=== PATIENT | female | born 1955 | race Caucasian/White ===

== ENCOUNTER 2017-01-10 06:08 | Day surgery (SDC) | payer MEDICARE, MEDICAID ==
[~2017-01-10] VITALS: Ht 165.1 cm; Wt 63.1 kg
[~2017-01-10 06:08] MED LIST: AMLO10TA2 PO; CITA20TA5 PO; CLON0.2T PO; ERGO500017 PO; GABA100C8 PO; HYDR-3138 PO; HYDR-3342 PO; INSU100C5 SQ-INSULIN; INSU100V8 SQ; LANT500T PO; LISI-170 PO; OMEP-110 PO; SIMV5TAB5 PO; SPIR25TA3 PO; TIZA2CAP PO
[2017-01-10 06:52] VITALS: BP 167/81
[2017-01-10] MEDS ORDERED: SODIUM CHLORIDE 0.9% 1,000 ML IV SCH (06:52)
[2017-01-10] MEDS ORDERED: HEPARIN 1,000 UNITS/ML, 10ML ONE (07:14)
[2017-01-10] MEDS ORDERED: BUPIVACAINE/PF 0.5% ONE (07:14)
[2017-01-10] MEDS ORDERED: PROTAMINE SULFATE 10 MG/ML, 5ML ONE (07:14)
[2017-01-10] MEDS ORDERED: hydrALAzine 20 MG/ML, 1ML IV PRN (08:30)
[2017-01-10] MEDS ORDERED: OXYcodone 5 MG/5 ML ORAL.SOL UDC PO PRN (08:30)
[2017-01-10] MEDS ORDERED: METOPROLOL 1 MG/ML, 5ML IV PRN (08:30)
[2017-01-10] MEDS ORDERED: ALBUTEROL SULFATE 2.5 MG/3 ML NPPB PRN (08:30)
[2017-01-10] MEDS ORDERED: ACETAMINOPHEN 325 MG TABLET PO PRN (08:30)
[2017-01-10] MEDS ORDERED: FENTANYL PF 100 MCG/2ML ONE ×2 (08:44→10:38)
[2017-01-10] MEDS ORDERED: PROPOFOL 10 MG/ML, 50ML ONE (08:46)
[2017-01-10] MEDS ORDERED: PROPOFOL 10 MG/ML, 20ML ONE (08:46)
[2017-01-10] MEDS ORDERED: CEFAZOLIN 1,000 MG ONE (08:46)
[2017-01-10] MEDS ORDERED: VISIPAQUE 270 MG/ML, 50ML BOTTLE ONE (09:25)
[2017-01-10] MEDS ORDERED: OXYcodone 5 MG/5 ML ORAL.SOL UDC ONE (10:38)
[2017-01-10] MEDS: FENTANYL PF 100 MCG/2ML IV PRN ×2 (10:40→10:46)
[2017-01-10] MEDS ORDERED: THROMBIN 5,000 UNIT VIAL TP ONE (15:05)
== END 2017-01-10 13:45 | disposition home or self-care (01) ==
LOC: OUT 06:08
PROVIDERS: ATTEND Surgery Vascular Surgery
DX: T82.858A Stenosis of other vascular prosthetic devices, implants and grafts, initial encounter (principal); Z79.4 Long term (current) use of insulin; Z86.14 Personal history of Methicillin resistant Staphylococcus aureus infection; E11.22 Type 2 diabetes mellitus with diabetic chronic kidney disease; I13.2 Hypertensive heart and chronic kidney disease with heart failure and with stage 5 chronic kidney disease, or end stage renal disease; N18.6 End stage renal disease; I50.9 Heart failure, unspecified; Z99.2 Dependence on renal dialysis; I42.9 Cardiomyopathy, unspecified; E11.21 Type 2 diabetes mellitus with diabetic nephropathy; K21.9 Gastro-esophageal reflux disease without esophagitis; D64.9 Anemia, unspecified; Z72.89 Other problems related to lifestyle; Y83.2 Surgical operation with anastomosis, bypass or graft as the cause of abnormal reaction of the patient, or of later complication, without mention of misadventure at the time of the procedure
CPT/HCPCS: 36415; 36832; 36901; 75710; 80047; 82962; 93005; C1768; J0690; J1644; J2704; J2720; J3010; J3490; J7030; Q9966

== ENCOUNTER 2017-04-17 07:05 | Day surgery (SDC) | payer MEDICARE, MEDICAID ==
[~2017-04-17] VITALS: Ht 165.1 cm; Wt 63.5 kg
[~2017-04-17 07:05] MED LIST changes: +GABA-826 PO; -GABA100C8 PO; -HYDR-3138 PO; +HYDR-3237 PO
[2017-04-17] MEDS ORDERED: LABETALOL 5MG/ML, 20ML IV PRN (08:30)
[2017-04-17] MEDS ORDERED: METOPROLOL 1 MG/ML, 5ML IV PRN (08:30)
[2017-04-17] MEDS ORDERED: FENTANYL PF 100 MCG/2ML IV PRN (08:30)
[2017-04-17] MEDS ORDERED: EPHEDRINE 50 MG/ML, 1ML IVPush PRN (08:30)
[2017-04-17] MEDS ORDERED: ALBUTEROL SULFATE 2.5 MG/3 ML NPPB PRN (08:30)
[2017-04-17] MEDS ORDERED: HYDROmorphone 1 MG/ML, 1ML IV PRN (08:30)
[2017-04-17] MEDS ORDERED: ONDANSETRON 2MG/ML, 2ML IVPush PRN (08:30)
[2017-04-17] MEDS ORDERED: SODIUM CHLORIDE 0.9% 1,000 ML IV SCH (08:34)
[2017-04-17 08:35] VITALS: BP 186/76
[2017-04-17 08:45] LABS: HEMATOCRIT 34.1 % (34.6-47.8); HEMOGLOBIN 11.4 g/dL (11.7-16.4); WHITE BLOOD COUNT 7.6 x10^3/uL (3.4-10)
[2017-04-17 08:54] LABS: ASPARTATE AMINO TRANSFERASE 37 U/L (15-37); BLOOD UREA NITROGEN 27 mg/dL (7-18)
[2017-04-17] MEDS ORDERED: FENTANYL PF 100 MCG/2ML ONE (09:05)
[2017-04-17] MEDS ORDERED: hydrALAzine 20 MG/ML, 1ML ONE (10:14)
[2017-04-17] MEDS ORDERED: hydrALAzine 20 MG/ML, 1ML IV PRN (10:30)
== END 2017-04-17 11:30 ==
LOC: OUT 07:05
PROVIDERS: ATTEND Internal Medicine Gastroenterology
DX: Z12.11 Encounter for screening for malignant neoplasm of colon (principal); K25.9 Gastric ulcer, unspecified as acute or chronic, without hemorrhage or perforation; D64.9 Anemia, unspecified; N18.6 End stage renal disease; Z86.14 Personal history of Methicillin resistant Staphylococcus aureus infection
CPT/HCPCS: 36415; 80053; 85025; 85610; 85730; 88305; G0121; J0360; J3010; J7030

== ENCOUNTER → 2019-06-25 | Outpatient (CLI) | payer MEDICARE, MEDICAID ==
[~2019-06-25] MED LIST changes: +ACET325T26 PO; +ACID1TAB7 PO; +AMIT10TA PO; -AMLO10TA2 PO; +AMLO10TA8 PO; +ATOR-2 PO; +CARV25TA12 PO; -CITA20TA5 PO; +CITA20TA6 PO; +FURO20TA3 PO; +HYDR-3343 PO; +HYDR-36 PO; +INSU100I11 SQ-INSULIN; +ISOS20TA58 PO; +LOSA50TA2 PO; +PATI8.4P PO; +SEVE800T8 PO; +SIMV5TAB14 PO; -SIMV5TAB5 PO; -SPIR25TA3 PO; +SPIR25TA5 PO; +albuterol inhaler
== END | disposition home or self-care (01) ==
LOC: CFH 12:14
PROVIDERS: ATTEND Internal Medicine Cardiovascular Disease
DX: I08.8 Other rheumatic multiple valve diseases (principal); E11.22 Type 2 diabetes mellitus with diabetic chronic kidney disease; I12.0 Hypertensive chronic kidney disease with stage 5 chronic kidney disease or end stage renal disease; N18.6 End stage renal disease
CPT/HCPCS: 93306

== ENCOUNTER → 2019-07-21 | Outpatient (CLI) | payer MEDICARE, MEDICAID ==
[2019-07-21 16:25] LABS: ALBUMIN 3.3 g/dL (3.4-5.0); ANION GAP 10 mmol/L (5-15); CALCIUM 9.7 mg/dL (8.5-10.1); CHLORIDE 93 mmol/L (98-107); CHOLESTEROL, TOTAL 95 mg/dL (140-239)
[2019-07-21 16:28] LABS: ALANINE AMINOTRANSFERASE 21 U/L (12-78); ALKALINE PHOSPHATASE 213 U/L (45-117); BILIRUBIN,TOTAL 0.4 mg/dL (0.2-1.0); CHOL/HDL RATIO 2.2; CREATININE 5.37 mg/dL (0.55-1.02); HDL CHOL % 46 % (28-40); HDL CHOLESTEROL (DIRECT) 44 mg/dL (40-60); LDL CHOLESTEROL,CALCULATED 28 mg/dL (54-169); LDL/HDL RATIO 0.6 (0.5-3.0); TOTAL PROTEIN 7.1 g/dL (6.4-8.2); TRIGLYCERIDES 116 mg/dL (50-200); VLDL CHOLESTEROL 23 mg/dL (0-25)
[2019-07-21 16:46] LABS: HEMOGLOBIN A1C 7.8 % (4.2-6.3)
== END | disposition home or self-care (01) ==
LOC: CFH 11:39
PROVIDERS: ATTEND Nurse Practitioner
DX: J98.11 Atelectasis (principal); J96.11 Chronic respiratory failure with hypoxia; E11.69 Type 2 diabetes mellitus with other specified complication
CPT/HCPCS: 36415; 71046; 80053; 80061; 83036

== ENCOUNTER 2019-08-27 06:00 | Day surgery (SDC) | payer MEDICARE, MEDICAID ==
[~2019-08-27] VITALS: Ht 165.1 cm; Wt 67.9 kg
[2019-08-27] MEDS ORDERED: LACTATED RINGERS 1,000 ML IV SCH (07:08)
[2019-08-27] MEDS ORDERED: SODIUM CHLORIDE 0.9% 1,000 ML IV SCH (07:10)
[2019-08-27] MEDS ORDERED: FENTANYL PF 100 MCG/2ML ONE (07:59)
[2019-08-27] MEDS ORDERED: MIDAZOLAM 1 MG/ML, 2ML ONE (07:59)
[2019-08-27] MEDS ORDERED: DEXTROSE 50%, 50ML SYRINGE IVPush PRN (08:00)
[2019-08-27] MEDS ORDERED: KETAMINE 10 MG/ML, 20ML ONE (08:04)
[2019-08-27 08:06] VITALS: BP 221/89
[2019-08-27] MEDS ORDERED: hydrALAzine 20 MG/ML, 1ML ONE (08:11)
[2019-08-27 08:13] LABS: ALBUMIN 3.3 g/dL (3.4-5.0); ANION GAP 9 mmol/L (5-15); CALCIUM 9.6 mg/dL (8.5-10.1); CHLORIDE 100 mmol/L (98-107)
[2019-08-27 08:16] LABS: ALANINE AMINOTRANSFERASE 14 U/L (12-78); ALKALINE PHOSPHATASE 172 U/L (45-117); BILIRUBIN,TOTAL 0.4 mg/dL (0.2-1.0); TOTAL PROTEIN 6.9 g/dL (6.4-8.2)
[2019-08-27] MEDS ORDERED: MEPERIDINE/PF 25MG/ML,1ML IVPush PRN (09:00)
[2019-08-27] MEDS ORDERED: HYDROmorphone 1 MG/ML, 1ML INJ IVPush PRN (09:00)
[2019-08-27] MEDS ORDERED: OXYcodone 5 MG/5 ML ORAL.SOL UDC PO PRN (09:00)
[2019-08-27] MEDS ORDERED: FENTANYL PF 100 MCG/2ML IV PRN (09:00)
[2019-08-27] MEDS ORDERED: ONDANSETRON 2MG/ML, 2ML IV PRN (09:00)
[2019-08-27] MEDS ORDERED: hydrALAzine 20 MG/ML, 1ML IV PRN (09:00)
== END 2019-08-27 10:40 | disposition home or self-care (01) ==
LOC: OUT 06:00
PROVIDERS: ATTEND Internal Medicine Gastroenterology
DX: R13.14 Dysphagia, pharyngoesophageal phase (principal); K22.2 Esophageal obstruction; K22.70 Barrett's esophagus without dysplasia; E11.22 Type 2 diabetes mellitus with diabetic chronic kidney disease; I13.2 Hypertensive heart and chronic kidney disease with heart failure and with stage 5 chronic kidney disease, or end stage renal disease; I50.9 Heart failure, unspecified; N18.6 End stage renal disease; E66.9 Obesity, unspecified; Z99.81 Dependence on supplemental oxygen; Z99.2 Dependence on renal dialysis
CPT/HCPCS: 43239; 43248; 80053; 82962; 88305; 93005; J0360; J2250; J3010; J7030

== ENCOUNTER 2019-09-18 12:35 | Observation (INO) | payer MEDICARE, MEDICAID ==
[~2019-09-18] VITALS: Ht 165.1 cm; Wt 70.0 kg
--- NOTE | 2019-09-18 12:50 | NUR ---
SEE TRIAGE NOTE. PT RATES ARNETT AND SS CP AT 03/21. PT WITH DIFFICULT IV ACCESS, REMSA UNABLE TO OBTAIN. MEDIC TO ATTEMPT IV START FOR PAIN MED DELIVERY. PT PLACED ON ALL ROOM MONITORING. NSR ON MONITOR. CALL LIGHT WITHIN REACH, WARM BLANKET PROVIDED. PT IMMEDIATELY PUT ON TV, WATCHING TV-NAD.
[2019-09-18] MEDS ORDERED: ONDANSETRON 2MG/ML, 2ML ONE (13:02)
[2019-09-18] MEDS: MORPHINE SULFATE 4 MG/ML, 1ML IVPush PRN ×3 (13:05→14:09)
[2019-09-18 13:23] LABS: BASOPHILS # (AUTO) 0.05 x10^3/uL (0-0.1); BASOPHILS % (AUTO) 1 % (0-1); EOSINOPHILS # (AUTO) 0.29 x10^3/uL (0-0.4); EOSINOPHILS % (AUTO) 4 % (1-7); LYMPHOCYTES # (AUTO) 1.59 x10^3/uL (1-3.4); LYMPHOCYTES % (AUTO) 21 % (22-44); MD NO; MEAN CORPUSCULAR HGB CONC 32.5 g/dL (32.4-35.8); MEAN CORPUSCULAR VOLUME 95.3 fL (80-100); MEAN PLATELET VOLUME 10.4 fL (7.4-10.4); MONOCYTES # (AUTO) 0.44 x10^3/uL (0.2-0.8); MONOCYTES % (AUTO) 6 % (2-9); NEUTROPHILS # (AUTO) 5.29 x10^3/uL (1.8-6.8); NEUTROPHILS % (AUTO) 69 % (42-75); PLATELET COUNT 216 x10^3/uL (130-400); RED BLOOD COUNT 3.66 x10^6/uL (3.82-5.3); RED CELL DISTRIBUTION WIDTH 16.8 % (9.6-15.2)
--- NOTE | 2019-09-18 13:24 | NUR ---
PT STATES ARNETT AND CP STILL RATED 8/10. IV ACCESS OBTAINED, PT MEDICATED PER ERP ORDER. ARRIVED, STATES PT ON HOME OXYGEN 24/7 AT 3LITERS VIA DE. PT'S CURRENT RA SAT 94%. OXYGEN PLACED AT 3LITERS VIA DE. CALL LIGHT WITHIN REACH.
[2019-09-18 13:31] LABS: ALANINE AMINOTRANSFERASE 18 U/L (12-78); ALBUMIN 3.7 g/dL (3.4-5.0); ANION GAP 10 mmol/L (5-15); CALCIUM 9.3 mg/dL (8.5-10.1); CHLORIDE 96 mmol/L (98-107); CREATININE 3.56 mg/dL (0.55-1.02)
[2019-09-18 13:35] LABS: ALKALINE PHOSPHATASE 202 U/L (45-117); BILIRUBIN,TOTAL 0.5 mg/dL (0.2-1.0); TOTAL PROTEIN 7.7 g/dL (6.4-8.2); TROPONIN I < 0.015 ng/mL (0.000-0.045)
--- NOTE | 2019-09-18 13:54 | NUR ---
ALL RESULTS BACK, PT FOR RECHECK.
[2019-09-18] MEDS ORDERED: ONDANSETRON 2MG/ML, 2ML IVPush ONE (14:00)
[2019-09-18] MEDS ORDERED: MORPHINE SULFATE 4 MG/ML, 1ML ONE (14:02)
[2019-09-18] MEDS ORDERED: hydrALAzine 20 MG/ML, 1ML IV ONE (14:30)
[2019-09-18] MEDS ORDERED: hydrALAzine 20 MG/ML, 1ML ONE (14:44)
--- NOTE | 2019-09-18 14:49 | NUR ---
PT MEDICATED PER ERP ORDER FOR HTN, . CONTINUE TO MONITOR.
--- NOTE | 2019-09-18 15:16 | NUR ---
BP DECREASED, PT STATES PAIN "LITTLE BIT" BETTER. VS UPDATED IN COMPUTER, PT FOR RECHECK.
[2019-09-18] MEDS ORDERED: CARV25TA12 PO (16:30)
[2019-09-18] MEDS ORDERED: CINA60TA PO (16:30)
[2019-09-18] MEDS ORDERED: SERT50TA PO (16:30)
--- NOTE | 2019-09-18 16:55 | NUR ---
ATTEMPT TO CALL REPORT, RN UNAVAILABLE, WILL CALL BACK.
[2019-09-18] MEDS ORDERED: ONDANSETRON 2MG/ML, 2ML IVPush PRN (17:00)
[2019-09-18] MEDS ORDERED: LOSARTAN 25MG TABLET PO SCH (17:00)
[2019-09-18] MEDS ORDERED: ONDANSETRON ODT 4 MG PO PRN (17:00)
--- NOTE | 2019-09-18 17:11 | NUR ---
REPORT TO JODY RN, PT READY FOR TRANSPORT.
[2019-09-18 17:25] LABS: TROPONIN I < 0.015 ng/mL (0.000-0.045)
[2019-09-18] MEDS ORDERED: LOSARTAN 25MG TABLET ONE (18:25)
[2019-09-18] MEDS ORDERED: ISOSORBIDE DINITRATE 10 MG TABLET ONE (18:26)
[2019-09-18] MEDS ORDERED: SEVELAMER CARBONATE 800MG TAB ONE (18:26)
[2019-09-18] MEDS ORDERED: HEPARIN 5,000 UNITS/ML, 1ML ONE (18:26)
[2019-09-18] MEDS: HEPARIN 5,000 UNITS/ML, 1ML SQ SCH ×2 (18:31→23:59)
[2019-09-18] MEDS: ISOSORBIDE DINITRATE 10 MG TABLET PO SCH ×2 (18:32→21:46)
[2019-09-18] MEDS: SEVELAMER CARBONATE 800MG TAB PO SCH (18:32)
[2019-09-18 18:35] VITALS: BP 200/84
[2019-09-18] MEDS: hydrALAzine 20 MG/ML, 1ML IV PRN (18:42)
[2019-09-18 19:14] VITALS: BP 173/77
[2019-09-18] MEDS ORDERED: SEVELAMER CARBONATE 800MG TAB PO SCH (21:00)
[2019-09-18 21:42] VITALS: BP 199/77
[2019-09-18] MEDS: TIZANIDINE 2MG TABLET PO SCH (21:45)
[2019-09-18] MEDS: ATORVASTATIN 10 MG TABLET PO SCH (21:46)
[2019-09-18] MEDS: ACETAMINOPHEN 325 MG TABLET PO PRN (21:46)
[2019-09-18] MEDS: GABAPENTIN 100 MG CAPSULE PO SCH (21:46)
[2019-09-18] MEDS: OMEPRAZOLE 20 MG CAPSULE.DR PO SCH (21:46)
[2019-09-18] MEDS: AMITRIPTYLINE 10 MG TABLET PO SCH (21:47)
[2019-09-18] MEDS: CARVEDILOL 25 MG TABLET PO SCH (21:47)
[2019-09-18] MEDS: INSULIN LISPRO 100 UNITS/ML, PEN SQ-INSULIN SCH (21:53)
[2019-09-18] MEDS: INSULIN GLARGINE 100 UNITS/ML, PEN SQ-INSULIN SCH (22:28)
[2019-09-18 23:39] LABS: TROPONIN I < 0.015 ng/mL (0.000-0.045)
[2019-09-18] MEDS: HYDROcodone/APAP 10/325 MG TABLET PO PRN (23:58)
[2019-09-19] VITALS (7 sets, daily range): BP systolic 173–194; BP diastolic 66–76
[2019-09-19] MEDS: hydrALAzine 20 MG/ML, 1ML IV PRN (04:31)
[2019-09-19 05:31] LABS: ANION GAP 4 mmol/L (5-15); CALCIUM 9.5 mg/dL (8.5-10.1); CHLORIDE 97 mmol/L (98-107); CREATININE 5.12 mg/dL (0.55-1.02)
[2019-09-19] MEDS: ASPIRIN 81 MG TABLET EC PO SCH (05:50)
[2019-09-19] MEDS ORDERED: SODIUM POLYSTYRENE SULFONATE ORAL SUSP PO ONE (06:30)
[2019-09-19] MEDS: INSULIN LISPRO 100 UNITS/ML, PEN SQ-INSULIN SCH ×4 (07:00→22:38)
[2019-09-19] MEDS ORDERED: SENNA/DOCUSATE TABLET PO PRN (09:00)
[2019-09-19] MEDS: GABAPENTIN 100 MG CAPSULE PO SCH ×3 (09:04→22:18)
[2019-09-19] MEDS: CITALOPRAM 20 MG TABLET PO SCH (09:04)
[2019-09-19] MEDS: SEVELAMER CARBONATE 800MG TAB PO SCH ×3 (09:05→17:34)
[2019-09-19] MEDS: OMEPRAZOLE 20 MG CAPSULE.DR PO SCH ×2 (09:05→22:17)
[2019-09-19] MEDS: CARVEDILOL 25 MG TABLET PO SCH ×2 (09:05→22:17)
[2019-09-19] MEDS: SERTRALINE 50MG TABLET PO SCH (09:05)
[2019-09-19] MEDS: AMLODIPINE 10 MG TAB PO SCH (09:05)
[2019-09-19] MEDS: CINACALCET 30 MG TABLET PO SCH (09:05)
[2019-09-19] MEDS: ISOSORBIDE DINITRATE 10 MG TABLET PO SCH ×3 (09:05→22:17)
[2019-09-19] MEDS: HEPARIN 5,000 UNITS/ML, 1ML SQ SCH ×2 (09:05→17:33)
[2019-09-19] MEDS: TIZANIDINE 2MG TABLET PO SCH ×2 (09:05→22:48)
[2019-09-19] MEDS: HYDROcodone/APAP 10/325 MG TABLET PO PRN (09:08)
[2019-09-19 16:23] LABS: ANION GAP 5 mmol/L (5-15); CALCIUM 8.9 mg/dL (8.5-10.1); CHLORIDE 97 mmol/L (98-107); CREATININE 3.55 mg/dL (0.55-1.02)
[2019-09-19] MEDS: ACETAMINOPHEN 325 MG TABLET PO PRN (16:38)
[2019-09-19] MEDS ORDERED: PATIROMER CALCIUM SORBITEX 8.4 GM PO SCH (21:00)
[2019-09-19] MEDS: AMITRIPTYLINE 10 MG TABLET PO SCH (22:17)
[2019-09-19] MEDS: ATORVASTATIN 10 MG TABLET PO SCH (22:19)
[2019-09-19] MEDS: INSULIN GLARGINE 100 UNITS/ML, PEN SQ-INSULIN SCH (22:38)
[2019-09-20 00:36] VITALS: BP 165/72
[2019-09-20] MEDS: HEPARIN 5,000 UNITS/ML, 1ML SQ SCH ×2 (01:52→10:54)
[2019-09-20] MEDS: ASPIRIN 81 MG TABLET EC PO SCH (05:27)
[2019-09-20 05:32] VITALS: BP 168/65
[2019-09-20] MEDS: ACETAMINOPHEN 325 MG TABLET PO PRN (05:42)
[2019-09-20 06:56] VITALS: BP 175/67
[2019-09-20] MEDS: INSULIN LISPRO 100 UNITS/ML, PEN SQ-INSULIN SCH ×2 (08:08→11:43)
[2019-09-20] MEDS: AMLODIPINE 10 MG TAB PO SCH (08:29)
[2019-09-20] MEDS: CINACALCET 30 MG TABLET PO SCH (08:29)
[2019-09-20] MEDS: ISOSORBIDE DINITRATE 10 MG TABLET PO SCH (08:30)
[2019-09-20] MEDS: SERTRALINE 50MG TABLET PO SCH (08:30)
[2019-09-20] MEDS: OMEPRAZOLE 20 MG CAPSULE.DR PO SCH (08:30)
[2019-09-20] MEDS: CITALOPRAM 20 MG TABLET PO SCH (08:30)
[2019-09-20] MEDS: SEVELAMER CARBONATE 800MG TAB PO SCH ×2 (08:30→12:00)
[2019-09-20] MEDS: GABAPENTIN 100 MG CAPSULE PO SCH (08:31)
[2019-09-20] MEDS: TIZANIDINE 2MG TABLET PO SCH (08:31)
[2019-09-20] MEDS: CARVEDILOL 25 MG TABLET PO SCH (08:31)
[2019-09-20] MEDS ORDERED: ISOS10TA2 PO ×2 (09:49)
[2019-09-20] MEDS ORDERED: HYDR-3343 PO (09:49)
[2019-09-24] MEDS ORDERED: ISOS10TA6 PO (15:40)
== END 2019-09-20 13:22 | disposition home or self-care (01) ==
LOC: ED 13:43 → EDIP 16:16 → INTOOBSV 16:16 → 5SO 18:20
PROVIDERS: ADMIT Internal Medicine; ATTEND Hospitalist
DX: R07.89 Other chest pain (principal); I13.2 Hypertensive heart and chronic kidney disease with heart failure and with stage 5 chronic kidney disease, or end stage renal disease; I50.32 Chronic diastolic (congestive) heart failure; N18.6 End stage renal disease; E11.22 Type 2 diabetes mellitus with diabetic chronic kidney disease; I25.10 Atherosclerotic heart disease of native coronary artery without angina pectoris; E87.5 Hyperkalemia; D63.1 Anemia in chronic kidney disease; I87.1 Compression of vein; I95.3 Hypotension of hemodialysis; Z79.899 Other long term (current) drug therapy; Z79.4 Long term (current) use of insulin; Z99.2 Dependence on renal dialysis
CPT/HCPCS: 36415; 71045; 80048; 80053; 82962; 84484; 85025; 93005; 96372; 96374; 96375; 96376; 99284; G0378; J0360; J1644; J1815; J2270; J2405; 90935

== ENCOUNTER 2019-10-09 09:40 | Inpatient (IN) | payer MEDICARE, MEDICAID ==
[~2019-10-09] VITALS: Ht 167.6 cm; Wt 79.1 kg
[~2019-10-09 09:40] MED LIST changes: +CINA60TA PO; +ISOS10TA2 PO; +ISOS10TA6 PO; +SERT50TA PO
--- NOTE | 2019-10-09 09:46 | NUR ---
PATIENT BROUGHT IN BY [facility] FROM [facility] AFTER EXPERIENCING GLF.
--- NOTE | 2019-10-09 09:47 | NUR ---
TASK RN: 64 Y/O FEMALE BIB AMBULANCE WITH C/O GLF. PER REPORT PT WAS [facility] FOR TREATMENT. WAS STANDING ON THE SCALE AND FELL OFF. PER REPORT THERE IS OBVIOUS DEFORMITY LEFT LOWER LEG/ANKLE. LEG IS SPLINTED. NOW BEDSIDE. 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 PT HAS LEFT UPPER ARM FISTULA. THRILL AND BRUIT PRESENT. PER REPORT THERE WAS NO WITNESSES SO LOC IS UNK. PT PLACED ON CONT PULSE OX,NIBP. EDMD BEDSIDE. REPORT TO CYNTHIA VALADEZ.
--- NOTE | 2019-10-09 09:58 | NUR ---
[facility] AT BEDSIDE FOR EVALUATION
[2019-10-09] MEDS ORDERED: SODIUM CHLORIDE FLUSH 10ML SYR IVF ONE (10:00)
[2019-10-09] MEDS ORDERED: PROPOFOL 10 MG/ML, 20ML IVPush ONE (10:00)
--- NOTE | 2019-10-09 10:11 | NUR ---
PT TO IMAGING
[2019-10-09 10:25] LABS: INTERNATIONAL NORMALIZED RATIO 1.04 (0.93-1.1)
[2019-10-09 10:27] LABS: ALBUMIN 2.9 g/dL (3.4-5.0); ANION GAP 10 mmol/L (5-15); CALCIUM 8.8 mg/dL (8.5-10.1); CHLORIDE 96 mmol/L (98-107); CREATININE 6.14 mg/dL (0.55-1.02)
[2019-10-09 10:34] LABS: MEAN CORPUSCULAR HEMOGLOBIN 32.2 pg (27.0-34.8); MEAN CORPUSCULAR HGB CONC 33.5 g/dL (32.4-35.8); MEAN CORPUSCULAR VOLUME 96.3 fL (80-100); MEAN PLATELET VOLUME 10.3 fL (7.4-10.4); PLATELET COUNT 172 x10^3/uL (130-400); RED BLOOD COUNT 2.22 x10^6/uL (3.82-5.3); RED CELL DISTRIBUTION WIDTH 15.6 % (9.6-15.2)
[2019-10-09 10:35] LABS: MD YES
[2019-10-09 10:38] LABS: EOS#(MANUAL) 0.19 x10^3/uL (0.0-0.4); EOS% (MANUAL) 1 % (1-7); LYMPH#(MANUAL) 1.16 x10^3/uL (1-3.4); LYMPHS% (MANUAL) 6 % (22-44); MONOS#(MANUAL) 0.19 x10^3/uL (0.3-2.7); MONOS% (MANUAL) 1 % (2-9); POLYCHROMASIA 1+; SEG#(MANUAL) 17.76 x10^3/uL (1.8-6.8); SEGS% (MANUAL) 92 % (42-75)
[2019-10-09 10:39] LABS: <PLATELET ESTIMATE> ADEQUATE; <PLT MORPHOLOGY> NORMAL PLT MORPH; ANISOCYTOSIS 1+
--- NOTE | 2019-10-09 11:13 | NUR ---
PT TOLERATED PROCEDURE WELL. VSS. SEE SEDATION FORM
[2019-10-09] MEDS ORDERED: SODIUM CHLORIDE 0.9% 1,000 ML IV SCH (12:00)
[2019-10-09] MEDS ORDERED: hydrALAzine 20 MG/ML, 1ML IVPush PRN (12:00)
--- NOTE | 2019-10-09 12:29 | NUR ---
[facility] AT BEDSIDE FOR EVALUATION
--- NOTE | 2019-10-09 13:28 | NUR ---
REPORT CALLED TO VEE MARIE. PT AWARE OF POC
[2019-10-09 14:20] VITALS: BP 115/66
[2019-10-09] MEDS: SEVELAMER CARBONATE 800MG TAB PO SCH ×2 (15:16→21:00)
[2019-10-09] MEDS ORDERED: INSULIN GLARGINE 100 UNITS/ML, PEN SQ-INSULIN ONE (15:20)
[2019-10-09] MEDS: INSULIN LISPRO 100 UNITS/ML, PEN SQ-INSULIN SCH ×2 (15:29→21:00)
[2019-10-09] MEDS: INSULIN GLARGINE 100 UNITS/ML, PEN SQ-INSULIN SCH ×2 (15:29→21:00)
[2019-10-09] MEDS: morphine SULFATE 10 MG/ML, 1ML IVPush PRN ×2 (15:39→21:29)
[2019-10-09] MEDS: GABAPENTIN 100 MG CAPSULE PO SCH ×2 (15:41→21:00)
[2019-10-09] MEDS ORDERED: BUPIVACAINE/PF 0.5% ONE (15:59)
[2019-10-09] MEDS ORDERED: EPINEPHRINE 1 MG/ML, 1ML ONE (16:00)
[2019-10-09] MEDS ORDERED: FENTANYL PF 250 MCG/5ML ONE (16:24)
[2019-10-09] MEDS ORDERED: SUGAMMADEX 200 MG/2 ML IVPush ONE (16:34)
[2019-10-09] MEDS ORDERED: CEFAZOLIN 1,000 MG ONE (16:34)
[2019-10-09] MEDS ORDERED: PROPOFOL 10 MG/ML, 20ML ONE (16:34)
[2019-10-09] MEDS ORDERED: ROCURONIUM 10MG/ML,5ML ONE (16:34)
[2019-10-09] MEDS ORDERED: ONDANSETRON 2MG/ML, 2ML ONE (16:34)
[2019-10-09] MEDS ORDERED: CEFAZOLIN PMX 1GM/50ML 50 ML IV SCH (19:00)
[2019-10-09] MEDS ORDERED: FENTANYL PF 100 MCG/2ML ONE (19:15)
[2019-10-09] MEDS ORDERED: OXYcodone 5 MG/5 ML ORAL.SOL UDC ONE (19:15)
[2019-10-09] MEDS: FENTANYL PF 100 MCG/2ML IV PRN ×2 (19:20→19:31)
[2019-10-09] MEDS ORDERED: OXYcodone 5 MG/5 ML ORAL.SOL UDC PO PRN (19:30)
[2019-10-09] MEDS ORDERED: hydrALAzine 20 MG/ML, 1ML IV PRN (19:30)
[2019-10-09] MEDS ORDERED: ALBUTEROL SULFATE 2.5 MG/3 ML NPPB PRN (19:30)
[2019-10-09] MEDS ORDERED: MEPERIDINE/PF 25MG/ML,1ML IVPush PRN (19:30)
[2019-10-09] MEDS ORDERED: HYDROmorphone 2 MG/ML, 1ML IVPush PRN (19:30)
[2019-10-09] MEDS ORDERED: ONDANSETRON 2MG/ML, 2ML IV PRN (19:30)
[2019-10-09 20:32] VITALS: BP 103/50
[2019-10-09] MEDS: ATORVASTATIN 10 MG TABLET PO SCH (21:00)
[2019-10-09] MEDS: AMITRIPTYLINE 10 MG TABLET PO SCH (21:00)
[2019-10-09] MEDS: OMEPRAZOLE 20 MG CAPSULE.DR PO SCH (21:00)
[2019-10-09] MEDS: CARVEDILOL 25 MG TABLET PO SCH (21:00)
[2019-10-09 22:10] VITALS: BP 94/52
[2019-10-09 22:24] VITALS: BP 100/58
[2019-10-10] VITALS (7 sets, daily range): BP systolic 96–143; BP diastolic 52–64
[2019-10-10] MEDS: morphine SULFATE 10 MG/ML, 1ML IVPush PRN ×5 (04:27→19:50)
[2019-10-10 04:48] LABS: ANION GAP 7 mmol/L (5-15); CALCIUM 8.6 mg/dL (8.5-10.1); CHLORIDE 97 mmol/L (98-107); CREATININE 6.87 mg/dL (0.55-1.02)
[2019-10-10 05:00] LABS: BASOPHILS # (AUTO) 0.03 x10^3/uL (0-0.1); BASOPHILS % (AUTO) 0 % (0-1); EOSINOPHILS # (AUTO) 0.32 x10^3/uL (0-0.4); EOSINOPHILS % (AUTO) 3 % (1-7); LYMPHOCYTES # (AUTO) 1.46 x10^3/uL (1-3.4); LYMPHOCYTES % (AUTO) 12 % (22-44); MD NO; MEAN CORPUSCULAR HEMOGLOBIN 31.6 pg (27.0-34.8); MEAN CORPUSCULAR HGB CONC 33.3 g/dL (32.4-35.8); MEAN CORPUSCULAR VOLUME 94.8 fL (80-100); MEAN PLATELET VOLUME 10.6 fL (7.4-10.4); MONOCYTES # (AUTO) 0.68 x10^3/uL (0.2-0.8); MONOCYTES % (AUTO) 6 % (2-9); NEUTROPHILS # (AUTO) 9.92 x10^3/uL (1.8-6.8); NEUTROPHILS % (AUTO) 80 % (42-75); PLATELET COUNT 161 x10^3/uL (130-400); RED BLOOD COUNT 2.43 x10^6/uL (3.82-5.3); RED CELL DISTRIBUTION WIDTH 16.2 % (9.6-15.2)
[2019-10-10] MEDS: ACETAMINOPHEN 325 MG TABLET PO PRN ×2 (06:05→14:18)
[2019-10-10] MEDS: INSULIN LISPRO 100 UNITS/ML, PEN SQ-INSULIN SCH ×4 (08:53→20:14)
[2019-10-10] MEDS ORDERED: SERTRALINE 50MG TABLET PO SCH (09:00)
[2019-10-10] MEDS: CARVEDILOL 25 MG TABLET PO SCH ×2 (09:00→19:51)
[2019-10-10] MEDS ORDERED: AMLODIPINE 10 MG TAB PO SCH (09:00)
[2019-10-10] MEDS: GABAPENTIN 100 MG CAPSULE PO SCH ×3 (09:23→19:51)
[2019-10-10] MEDS: CITALOPRAM 20 MG TABLET PO SCH (09:23)
[2019-10-10] MEDS: SEVELAMER CARBONATE 800MG TAB PO SCH ×3 (09:23→19:51)
[2019-10-10] MEDS: OMEPRAZOLE 20 MG CAPSULE.DR PO SCH ×2 (09:23→19:50)
[2019-10-10] MEDS: HEPARIN 5,000 UNITS/ML, 1ML SQ SCH ×2 (11:27→19:52)
[2019-10-10] MEDS ORDERED: DARBEPOETIN 100 MCG/ML SQ SCH (13:30)
[2019-10-10] MEDS: ATORVASTATIN 10 MG TABLET PO SCH (19:51)
[2019-10-10] MEDS: AMITRIPTYLINE 10 MG TABLET PO SCH (19:51)
[2019-10-10] MEDS: INSULIN GLARGINE 100 UNITS/ML, PEN SQ-INSULIN SCH (20:15)
[2019-10-11 00:43] VITALS: BP 147/78
[2019-10-11] MEDS: HEPARIN 5,000 UNITS/ML, 1ML SQ SCH ×3 (05:00→22:14)
[2019-10-11 05:03] LABS: BASOPHILS # (AUTO) 0.04 x10^3/uL (0-0.1); BASOPHILS % (AUTO) 0 % (0-1); EOSINOPHILS # (AUTO) 0.25 x10^3/uL (0-0.4); EOSINOPHILS % (AUTO) 3 % (1-7); LYMPHOCYTES # (AUTO) 0.97 x10^3/uL (1-3.4); LYMPHOCYTES % (AUTO) 10 % (22-44); MD NO; MEAN CORPUSCULAR HEMOGLOBIN 31.8 pg (27.0-34.8); MEAN CORPUSCULAR HGB CONC 33.4 g/dL (32.4-35.8); MEAN CORPUSCULAR VOLUME 95.1 fL (80-100); MEAN PLATELET VOLUME 9.9 fL (7.4-10.4); MONOCYTES # (AUTO) 0.74 x10^3/uL (0.2-0.8); MONOCYTES % (AUTO) 8 % (2-9); NEUTROPHILS % (AUTO) 80 % (42-75); PLATELET COUNT 213 x10^3/uL (130-400); RED BLOOD COUNT 2.48 x10^6/uL (3.82-5.3); RED CELL DISTRIBUTION WIDTH 16.2 % (9.6-15.2)
[2019-10-11 05:09] LABS: ALBUMIN 2.7 g/dL (3.4-5.0); ANION GAP 6 mmol/L (5-15); CALCIUM 8.8 mg/dL (8.5-10.1); CHLORIDE 98 mmol/L (98-107)
[2019-10-11 05:15] LABS: % IRON SATURATION 22 % (20-55); ALANINE AMINOTRANSFERASE 7 U/L (12-78); ALKALINE PHOSPHATASE 174 U/L (45-117); BILIRUBIN,TOTAL 0.4 mg/dL (0.2-1.0); CREATININE 4.35 mg/dL (0.55-1.02); IRON LEVEL 31 mcg/dL (50-170); TOTAL IRON BINDING CAPACITY 138 mcg/dL (250-450); TOTAL PROTEIN 6.8 g/dL (6.4-8.2)
[2019-10-11] MEDS: morphine SULFATE 10 MG/ML, 1ML IVPush PRN ×2 (05:53→10:33)
[2019-10-11 07:24] VITALS: BP 156/67
[2019-10-11] MEDS: CARVEDILOL 25 MG TABLET PO SCH ×2 (08:26→22:14)
[2019-10-11] MEDS: SEVELAMER CARBONATE 800MG TAB PO SCH ×3 (08:26→22:14)
[2019-10-11] MEDS: OMEPRAZOLE 20 MG CAPSULE.DR PO SCH ×2 (08:26→22:13)
[2019-10-11] MEDS: GABAPENTIN 100 MG CAPSULE PO SCH ×3 (08:27→22:14)
[2019-10-11] MEDS: AMLODIPINE 10 MG TAB PO SCH (08:27)
[2019-10-11] MEDS: CITALOPRAM 20 MG TABLET PO SCH (08:27)
[2019-10-11] MEDS: INSULIN LISPRO 100 UNITS/ML, PEN SQ-INSULIN SCH ×4 (08:28→22:40)
[2019-10-11] MEDS ORDERED: ERGOCALCIFEROL 50,000 UNIT CAPSULE PO SCH (12:30)
[2019-10-11] MEDS: CALCITRIOL 0.25 MCG CAPSULE PO SCH (12:50)
[2019-10-11] MEDS: MULTIVITAMIN 1 TABLET PO SCH (12:50)
[2019-10-11 13:41] VITALS: BP 136/71
[2019-10-11] MEDS: OXYcodone IR 5MG TABLET PO PRN (16:04)
[2019-10-11 19:37] VITALS: BP 144/70
[2019-10-11 22:13] VITALS: BP 138/69
[2019-10-11] MEDS: ATORVASTATIN 10 MG TABLET PO SCH (22:14)
[2019-10-11] MEDS: AMITRIPTYLINE 10 MG TABLET PO SCH (22:14)
[2019-10-11] MEDS: INSULIN GLARGINE 100 UNITS/ML, PEN SQ-INSULIN SCH (22:40)
[2019-10-12 02:57] VITALS: BP 123/73
[2019-10-12] MEDS: HEPARIN 5,000 UNITS/ML, 1ML SQ SCH ×3 (05:00→23:24)
[2019-10-12 05:47] LABS: ALBUMIN 2.8 g/dL (3.4-5.0); ANION GAP 11 mmol/L (5-15); CALCIUM 9.6 mg/dL (8.5-10.1); CHLORIDE 96 mmol/L (98-107)
[2019-10-12 05:49] LABS: CREATININE 5.79 mg/dL (0.55-1.02)
[2019-10-12 06:06] LABS: BASOPHILS # (AUTO) 0.06 x10^3/uL (0-0.1); BASOPHILS % (AUTO) 1 % (0-1); EOSINOPHILS # (AUTO) 0.24 x10^3/uL (0-0.4); EOSINOPHILS % (AUTO) 3 % (1-7); LYMPHOCYTES # (AUTO) 1.19 x10^3/uL (1-3.4); LYMPHOCYTES % (AUTO) 14 % (22-44); MD NO; MEAN CORPUSCULAR HGB CONC 33.3 g/dL (32.4-35.8); MEAN CORPUSCULAR VOLUME 96.2 fL (80-100); MEAN PLATELET VOLUME 9.8 fL (7.4-10.4); MONOCYTES # (AUTO) 0.72 x10^3/uL (0.2-0.8); MONOCYTES % (AUTO) 9 % (2-9); NEUTROPHILS # (AUTO) 6.19 x10^3/uL (1.8-6.8); NEUTROPHILS % (AUTO) 74 % (42-75); PLATELET COUNT 238 x10^3/uL (130-400); RED BLOOD COUNT 2.42 x10^6/uL (3.82-5.3); RED CELL DISTRIBUTION WIDTH 15.7 % (9.6-15.2)
[2019-10-12 06:36] VITALS: BP 117/68
[2019-10-12] MEDS: INSULIN LISPRO 100 UNITS/ML, PEN SQ-INSULIN SCH ×4 (08:59→20:09)
[2019-10-12] MEDS: AMLODIPINE 10 MG TAB PO SCH (09:00)
[2019-10-12] MEDS: MULTIVITAMIN 1 TABLET PO SCH (09:00)
[2019-10-12] MEDS: GABAPENTIN 100 MG CAPSULE PO SCH ×3 (09:00→23:11)
[2019-10-12] MEDS: CITALOPRAM 20 MG TABLET PO SCH (09:00)
[2019-10-12] MEDS: SEVELAMER CARBONATE 800MG TAB PO SCH ×3 (09:00→23:11)
[2019-10-12] MEDS: OMEPRAZOLE 20 MG CAPSULE.DR PO SCH ×2 (09:01→23:12)
[2019-10-12] MEDS: CALCITRIOL 0.25 MCG CAPSULE PO SCH (09:01)
[2019-10-12] MEDS: OXYcodone IR 5MG TABLET PO PRN ×2 (09:01→23:12)
[2019-10-12] MEDS: CARVEDILOL 25 MG TABLET PO SCH ×2 (09:01→23:11)
[2019-10-12 12:34] VITALS: BP 135/74
[2019-10-12 20:08] VITALS: BP 139/72
[2019-10-12] MEDS: AMITRIPTYLINE 10 MG TABLET PO SCH (23:11)
[2019-10-12] MEDS: ATORVASTATIN 10 MG TABLET PO SCH (23:11)
[2019-10-12] MEDS: INSULIN GLARGINE 100 UNITS/ML, PEN SQ-INSULIN SCH (23:13)
[2019-10-13 03:50] VITALS: BP 149/74
[2019-10-13 05:47] LABS: MEAN CORPUSCULAR HEMOGLOBIN 32.3 pg (27.0-34.8); MEAN CORPUSCULAR HGB CONC 33.4 g/dL (32.4-35.8); MEAN CORPUSCULAR VOLUME 96.7 fL (80-100); MEAN PLATELET VOLUME 8.9 fL (7.4-10.4); PLATELET COUNT 247 x10^3/uL (130-400); RED BLOOD COUNT 2.32 x10^6/uL (3.82-5.3); RED CELL DISTRIBUTION WIDTH 15.5 % (9.6-15.2)
[2019-10-13 05:55] LABS: ALBUMIN 2.5 g/dL (3.4-5.0); ANION GAP 6 mmol/L (5-15); CALCIUM 9.2 mg/dL (8.5-10.1); CHLORIDE 98 mmol/L (98-107); CREATININE 4.04 mg/dL (0.55-1.02)
[2019-10-13 06:44] LABS: MD YES
[2019-10-13 06:47] LABS: BAND#(MANUAL) 0.16 x10^3/uL; BANDS%(MANUAL) 2 % (0-7); EOS#(MANUAL) 0.47 x10^3/uL (0.0-0.4); EOS% (MANUAL) 6 % (1-7); LYMPH#(MANUAL) 0.55 x10^3/uL (1-3.4); LYMPHS% (MANUAL) 7 % (22-44); METAMYELOCYTES# (MANUAL) 0.31 x10^3/uL (0-0); METAMYELOCYTES% (MANUAL) 4 % (0-1); MONOS#(MANUAL) 0.31 x10^3/uL (0.3-2.7); MONOS% (MANUAL) 4 % (2-9); MYELOCYTES# (MANUAL) 0.16 x10^3/uL (0-0); MYELOCYTES% (MANUAL) 2 % (0-0); SEG#(MANUAL) 5.85 x10^3/uL (1.8-6.8); SEGS% (MANUAL) 75 % (42-75)
[2019-10-13 06:52] LABS: ANISOCYTOSIS 1+; POLYCHROMASIA 1+
[2019-10-13 06:53] LABS: <PLATELET ESTIMATE> ADEQUATE; <PLT MORPHOLOGY> NORMAL PLT MORPH
[2019-10-13 07:04] VITALS: BP 155/70
[2019-10-13] MEDS: CALCITRIOL 0.25 MCG CAPSULE PO SCH (08:55)
[2019-10-13] MEDS: CITALOPRAM 20 MG TABLET PO SCH (08:55)
[2019-10-13] MEDS: INSULIN LISPRO 100 UNITS/ML, PEN SQ-INSULIN SCH ×4 (08:55→21:50)
[2019-10-13] MEDS: SEVELAMER CARBONATE 800MG TAB PO SCH ×3 (08:55→21:48)
[2019-10-13] MEDS: GABAPENTIN 100 MG CAPSULE PO SCH ×3 (08:56→21:48)
[2019-10-13] MEDS: AMLODIPINE 10 MG TAB PO SCH (08:56)
[2019-10-13] MEDS: OXYcodone IR 5MG TABLET PO PRN (08:56)
[2019-10-13] MEDS: HEPARIN 5,000 UNITS/ML, 1ML SQ SCH ×2 (08:56→17:17)
[2019-10-13] MEDS: CARVEDILOL 25 MG TABLET PO SCH ×2 (08:56→21:48)
[2019-10-13] MEDS: OMEPRAZOLE 20 MG CAPSULE.DR PO SCH ×2 (08:56→21:48)
[2019-10-13] MEDS: MULTIVITAMIN 1 TABLET PO SCH (08:57)
[2019-10-13] MEDS ORDERED: ERGO500017 PO (11:29)
[2019-10-13] MEDS ORDERED: OXYC5TAB3 PO (11:29)
[2019-10-13] MEDS ORDERED: HEPA50002 SQ (11:29)
[2019-10-13] MEDS ORDERED: MULT1TAB60 PO (11:29)
[2019-10-13 12:47] VITALS: BP 133/73
[2019-10-13] MEDS: ACETAMINOPHEN 325 MG TABLET PO PRN (17:17)
[2019-10-13 18:34] VITALS: BP 129/68
[2019-10-13] MEDS: AMITRIPTYLINE 10 MG TABLET PO SCH (21:48)
[2019-10-13] MEDS: ATORVASTATIN 10 MG TABLET PO SCH (21:48)
[2019-10-13] MEDS: INSULIN GLARGINE 100 UNITS/ML, PEN SQ-INSULIN SCH (21:49)
[2019-10-14] MEDS: HEPARIN 5,000 UNITS/ML, 1ML SQ SCH ×3 (00:18→21:01)
[2019-10-14 00:33] VITALS: BP 132/65
[2019-10-14 06:50] VITALS: BP 158/72
[2019-10-14] MEDS: OXYcodone IR 5MG TABLET PO PRN (06:51)
[2019-10-14 07:35] VITALS: BP 152/72
[2019-10-14] MEDS: CARVEDILOL 25 MG TABLET PO SCH ×2 (08:38→21:01)
[2019-10-14] MEDS: GABAPENTIN 100 MG CAPSULE PO SCH ×3 (08:38→21:01)
[2019-10-14] MEDS: SEVELAMER CARBONATE 800MG TAB PO SCH ×4 (08:38→21:01)
[2019-10-14] MEDS: OMEPRAZOLE 20 MG CAPSULE.DR PO SCH ×2 (08:38→21:01)
[2019-10-14] MEDS: CALCITRIOL 0.25 MCG CAPSULE PO SCH (08:38)
[2019-10-14] MEDS: AMLODIPINE 10 MG TAB PO SCH (08:38)
[2019-10-14] MEDS: MULTIVITAMIN 1 TABLET PO SCH (08:38)
[2019-10-14] MEDS: CITALOPRAM 20 MG TABLET PO SCH (08:38)
[2019-10-14] MEDS: INSULIN LISPRO 100 UNITS/ML, PEN SQ-INSULIN SCH ×5 (08:39→21:02)
[2019-10-14 09:28] LABS: ANION GAP 9 mmol/L (5-15); CALCIUM 9.5 mg/dL (8.5-10.1); CHLORIDE 97 mmol/L (98-107); CREATININE 5.96 mg/dL (0.55-1.02)
[2019-10-14 09:32] LABS: MEAN CORPUSCULAR HEMOGLOBIN 31.8 pg (27.0-34.8); MEAN CORPUSCULAR HGB CONC 32.7 g/dL (32.4-35.8); MEAN CORPUSCULAR VOLUME 97.2 fL (80-100); MEAN PLATELET VOLUME 8.3 fL (7.4-10.4); PLATELET COUNT 297 x10^3/uL (130-400); RED CELL DISTRIBUTION WIDTH 15.2 % (9.6-15.2)
[2019-10-14 10:07] LABS: MD YES
[2019-10-14 10:09] LABS: <PLATELET ESTIMATE> ADEQUATE; <PLT MORPHOLOGY> NORMAL PLT MORPH; ANISOCYTOSIS 1+; BAND#(MANUAL) 0.09 x10^3/uL; BANDS%(MANUAL) 1 % (0-7); EOS#(MANUAL) 0.52 x10^3/uL (0.0-0.4); EOS% (MANUAL) 6 % (1-7); LYMPH#(MANUAL) 1.39 x10^3/uL (1-3.4); LYMPHS% (MANUAL) 16 % (22-44); METAMYELOCYTES# (MANUAL) 0.17 x10^3/uL (0-0); METAMYELOCYTES% (MANUAL) 2 % (0-1); MONOS#(MANUAL) 0.87 x10^3/uL (0.3-2.7); MONOS% (MANUAL) 10 % (2-9); MYELOCYTES# (MANUAL) 0.09 x10^3/uL (0-0); MYELOCYTES% (MANUAL) 1 % (0-0); POLYCHROMASIA 1+; SEG#(MANUAL) 5.57 x10^3/uL (1.8-6.8); SEGS% (MANUAL) 64 % (42-75)
[2019-10-14 11:54] LABS: OCCULT BLOOD NEGATIVE (NEGATIVE)
[2019-10-14 15:59] VITALS: BP 152/73
[2019-10-14 20:53] VITALS: BP 176/67
[2019-10-14] MEDS: ATORVASTATIN 10 MG TABLET PO SCH (21:00)
[2019-10-14] MEDS: INSULIN GLARGINE 100 UNITS/ML, PEN SQ-INSULIN SCH (21:01)
[2019-10-14] MEDS: AMITRIPTYLINE 10 MG TABLET PO SCH (21:01)
[2019-10-15 02:07] VITALS: BP 182/64
[2019-10-15] MEDS: ACETAMINOPHEN 325 MG TABLET PO PRN (02:17)
[2019-10-15 04:30] VITALS: BP 167/68
[2019-10-15] MEDS: HEPARIN 5,000 UNITS/ML, 1ML SQ SCH ×3 (05:42→21:58)
[2019-10-15 08:22] VITALS: BP 165/68
[2019-10-15] MEDS: INSULIN LISPRO 100 UNITS/ML, PEN SQ-INSULIN SCH ×4 (08:25→21:57)
[2019-10-15] MEDS: CEFTRIAXONE PMX 1GM/50ML 50 ML IV SCH (08:25)
[2019-10-15] MEDS: OMEPRAZOLE 20 MG CAPSULE.DR PO SCH ×2 (08:41→21:58)
[2019-10-15] MEDS: AMLODIPINE 10 MG TAB PO SCH (08:41)
[2019-10-15] MEDS: SEVELAMER CARBONATE 800MG TAB PO SCH ×3 (08:41→21:58)
[2019-10-15] MEDS: CALCITRIOL 0.25 MCG CAPSULE PO SCH (08:41)
[2019-10-15] MEDS: MULTIVITAMIN 1 TABLET PO SCH (08:42)
[2019-10-15] MEDS: CARVEDILOL 25 MG TABLET PO SCH ×2 (08:42→21:58)
[2019-10-15] MEDS: GABAPENTIN 100 MG CAPSULE PO SCH ×3 (08:42→21:58)
[2019-10-15] MEDS: CITALOPRAM 20 MG TABLET PO SCH (08:42)
[2019-10-15] MEDS ORDERED: DOXYCYCLINE 100MG TABLET PO SCH (09:00)
[2019-10-15 10:16] LABS: MEAN CORPUSCULAR HEMOGLOBIN 32.2 pg (27.0-34.8); MEAN CORPUSCULAR HGB CONC 33.2 g/dL (32.4-35.8); MEAN PLATELET VOLUME 8.3 fL (7.4-10.4); PLATELET COUNT 308 x10^3/uL (130-400); RED BLOOD COUNT 2.42 x10^6/uL (3.82-5.3); RED CELL DISTRIBUTION WIDTH 15.3 % (9.6-15.2)
[2019-10-15 10:25] LABS: ANION GAP 8 mmol/L (5-15); CALCIUM 9.2 mg/dL (8.5-10.1); CHLORIDE 96 mmol/L (98-107); CREATININE 4.35 mg/dL (0.55-1.02)
[2019-10-15 10:38] LABS: BASOPHILS # (AUTO) 0.03 x10^3/uL (0-0.1); BASOPHILS % (AUTO) 0 % (0-1); EOSINOPHILS # (AUTO) 0.15 x10^3/uL (0-0.4); EOSINOPHILS % (AUTO) 2 % (1-7); LYMPHOCYTES # (AUTO) 1.11 x10^3/uL (1-3.4); LYMPHOCYTES % (AUTO) 13 % (22-44); MD SCAN; MONOCYTES # (AUTO) 0.57 x10^3/uL (0.2-0.8); MONOCYTES % (AUTO) 7 % (2-9); NEUTROPHILS # (AUTO) 6.64 x10^3/uL (1.8-6.8); NEUTROPHILS % (AUTO) 78 % (42-75)
[2019-10-15] MEDS ORDERED: POLYETHYLENE GLYCOL 17 GM PACKET PO ONE (12:00)
[2019-10-15] MEDS ORDERED: SENNA/DOCUSATE TABLET PO PRN (12:00)
[2019-10-15] MEDS: POLYETHYLENE GLYCOL 17 GM PACKET PO SCH (12:13)
[2019-10-15 14:58] VITALS: BP 156/67
[2019-10-15 18:29] VITALS: BP 162/82
[2019-10-15] MEDS ORDERED: INSULIN GLARGINE 100 UNITS/ML, PEN SQ-INSULIN SCH (21:00)
[2019-10-15] MEDS: OXYcodone IR 5MG TABLET PO PRN (21:56)
[2019-10-15] MEDS: ATORVASTATIN 10 MG TABLET PO SCH (21:58)
[2019-10-15] MEDS: AMITRIPTYLINE 10 MG TABLET PO SCH (21:58)
[2019-10-16 02:41] VITALS: BP 134/60
[2019-10-16] MEDS: HEPARIN 5,000 UNITS/ML, 1ML SQ SCH ×2 (05:32→13:45)
[2019-10-16 05:46] LABS: ALBUMIN 2.6 g/dL (3.4-5.0); ANION GAP 9 mmol/L (5-15); CALCIUM 9.3 mg/dL (8.5-10.1); CHLORIDE 95 mmol/L (98-107); CREATININE 5.66 mg/dL (0.55-1.02)
[2019-10-16 05:48] LABS: ALKALINE PHOSPHATASE 170 U/L (45-117); BILIRUBIN,TOTAL 0.4 mg/dL (0.2-1.0); TOTAL PROTEIN 6.8 g/dL (6.4-8.2)
[2019-10-16 05:53] LABS: ALANINE AMINOTRANSFERASE < 6 U/L (12-78)
[2019-10-16 06:55] VITALS: BP 127/57
[2019-10-16] MEDS: INSULIN LISPRO 100 UNITS/ML, PEN SQ-INSULIN SCH ×2 (07:31→12:08)
[2019-10-16] MEDS: SEVELAMER CARBONATE 800MG TAB PO SCH (08:39)
[2019-10-16 08:42] LABS: MEAN CORPUSCULAR HEMOGLOBIN 32.2 pg (27.0-34.8); MEAN CORPUSCULAR HGB CONC 32.9 g/dL (32.4-35.8); MEAN PLATELET VOLUME 8.6 fL (7.4-10.4); PLATELET COUNT 317 x10^3/uL (130-400); RED CELL DISTRIBUTION WIDTH 15.4 % (9.6-15.2)
[2019-10-16] MEDS ORDERED: INSULIN GLARGINE 100 UNITS/ML, PEN SQ-INSULIN SCH (09:00)
[2019-10-16 09:08] LABS: BASOPHILS # (AUTO) 0.06 x10^3/uL (0-0.1); BASOPHILS % (AUTO) 1 % (0-1); EOSINOPHILS # (AUTO) 0.13 x10^3/uL (0-0.4); EOSINOPHILS % (AUTO) 1 % (1-7); LYMPHOCYTES # (AUTO) 1.46 x10^3/uL (1-3.4); LYMPHOCYTES % (AUTO) 14 % (22-44); MD SCAN; MONOCYTES # (AUTO) 0.73 x10^3/uL (0.2-0.8); MONOCYTES % (AUTO) 7 % (2-9); NEUTROPHILS # (AUTO) 7.84 x10^3/uL (1.8-6.8); NEUTROPHILS % (AUTO) 77 % (42-75)
[2019-10-16 12:02] VITALS: BP 120/56
[2019-10-16 13:43] VITALS: BP 116/67
[2019-10-16] MEDS: CALCITRIOL 0.25 MCG CAPSULE PO SCH (13:44)
[2019-10-16] MEDS: CARVEDILOL 25 MG TABLET PO SCH (13:44)
[2019-10-16] MEDS: OMEPRAZOLE 20 MG CAPSULE.DR PO SCH (13:44)
[2019-10-16] MEDS: GABAPENTIN 100 MG CAPSULE PO SCH (13:44)
[2019-10-16] MEDS: AMLODIPINE 10 MG TAB PO SCH (13:44)
[2019-10-16] MEDS: MULTIVITAMIN 1 TABLET PO SCH (13:44)
[2019-10-16] MEDS: CITALOPRAM 20 MG TABLET PO SCH (13:44)
[2019-10-16] MEDS: CEFTRIAXONE PMX 1GM/50ML 50 ML IV SCH (13:44)
[2019-10-16] MEDS: POLYETHYLENE GLYCOL 17 GM PACKET PO SCH (13:46)
[2019-10-16] MEDS: OXYcodone IR 5MG TABLET PO PRN (15:06)
== END 2019-10-16 15:07 | DRG 492 ==
LOC: ED 11:31 → EDIP 11:38 → 4WST 14:17
PROVIDERS: ADMIT Internal Medicine Infectious Disease; ATTEND Hospitalist
PROC: 30233N1 Transfusion of Nonautologous Red Blood Cells into Peripheral Vein, Percutaneous Approach (ICD-10-PCS; 2019-10-09)
PROC: 0QSKXZZ Reposition Left Fibula, External Approach (ICD-10-PCS; 2019-10-09)
PROC: 0QSHXZZ Reposition Left Tibia, External Approach (ICD-10-PCS; 2019-10-09)
PROC: 2W3RX1Z Immobilization of Left Lower Leg using Splint (ICD-10-PCS; 2019-10-09)
PROC: 0QSH06Z Reposition Left Tibia with Intramedullary Internal Fixation Device, Open Approach (ICD-10-PCS; principal; 2019-10-09 17:00)
PROC: 5A1D70Z Performance of Urinary Filtration, Intermittent, Less than 6 Hours Per Day (ICD-10-PCS; 2019-10-10)
PROC: 5A1D70Z Performance of Urinary Filtration, Intermittent, Less than 6 Hours Per Day (ICD-10-PCS; 2019-10-12)
PROC: 5A1D70Z Performance of Urinary Filtration, Intermittent, Less than 6 Hours Per Day (ICD-10-PCS; 2019-10-14)
PROC: 5A1D70Z Performance of Urinary Filtration, Intermittent, Less than 6 Hours Per Day (ICD-10-PCS; 2019-10-16)
DX: S82.252A Displaced comminuted fracture of shaft of left tibia, initial encounter for closed fracture (principal); G93.41 Metabolic encephalopathy; N18.6 End stage renal disease; I50.32 Chronic diastolic (congestive) heart failure; I13.2 Hypertensive heart and chronic kidney disease with heart failure and with stage 5 chronic kidney disease, or end stage renal disease; I25.10 Atherosclerotic heart disease of native coronary artery without angina pectoris; S82.832A Other fracture of upper and lower end of left fibula, initial encounter for closed fracture; Z99.2 Dependence on renal dialysis; E11.22 Type 2 diabetes mellitus with diabetic chronic kidney disease; W05.0XXA Fall from non-moving wheelchair, initial encounter; D72.828 Other elevated white blood cell count; G89.29 Other chronic pain; E78.5 Hyperlipidemia, unspecified; M54.5 Low back pain; D63.1 Anemia in chronic kidney disease; N25.0 Renal osteodystrophy; Z79.4 Long term (current) use of insulin; Y93.89 Activity, other specified; Y92.89 Other specified places as the place of occurrence of the external cause; Y99.8 Other external cause status
CPT/HCPCS: 36415; 71045; 74176; 76000; 80048; 80053; 80069; 82040; 82272; 82306; 82728; 82947; 82962; 83036; 83540; 83550; 83735; 83970; 84100; 84443; 84550; 85014; 85018; 85025; 85610; 86850; 86900; 86923; 87040; 90935; 93005; 99285; C1713; G0378; J0171; J0690; J0696; J0881; J1644; J2405; J2704; J3010; J0360; J1815; J2270; J7030; P9016

== ENCOUNTER → 2019-12-24 | Outpatient (CLI) | payer MEDICARE, MEDICAID ==
[~2019-12-24] MED LIST changes: +HEPA50002 SQ; +MULT1TAB60 PO; +OXYC5TAB3 PO
== END | disposition home or self-care (01) ==
LOC: CFH 10:31
PROVIDERS: ATTEND Family Medicine
DX: S82.832D Other fracture of upper and lower end of left fibula, subsequent encounter for closed fracture with routine healing (principal); M85.88 Other specified disorders of bone density and structure, other site; X58.XXXD Exposure to other specified factors, subsequent encounter

== ENCOUNTER → 2020-07-21 | Outpatient (CLI) | payer MEDICARE, MEDICAID ==
[~2020-07-21] MED LIST changes: +AMLO-211 PO; -AMLO10TA8 PO; +AMOX1TAB64 PO; +HYDR-3246 PO; -HYDR-36 PO; +MULT-449 PO; -MULT1TAB60 PO; +OMEP40CA42 PO
== END | disposition home or self-care (01) ==
LOC: CFH 12:06
PROVIDERS: ATTEND Family Medicine
DX: N61.0 Mastitis without abscess (principal); R59.1 Generalized enlarged lymph nodes; R23.4 Changes in skin texture
CPT/HCPCS: 76642; 77066; G0279

== ENCOUNTER 2020-08-06 18:42 | Emergency (ER) | payer MEDICAID, MEDICARE ==
[~2020-08-06] VITALS: Ht 165.1 cm; Wt 60.0 kg
[2020-08-06 19:16] LABS: BASOPHILS % (AUTO) 1 % (0-1); EOSINOPHILS % (AUTO) 1 % (1-7); LYMPHOCYTES % (AUTO) 12 % (22-44); MEAN CORPUSCULAR HEMOGLOBIN 33.1 pg (27.0-34.8); MEAN CORPUSCULAR HGB CONC 34.4 g/dL (32.4-35.8); MEAN PLATELET VOLUME 9.2 fL (7.4-10.4); MONOCYTES % (AUTO) 12 % (2-9); NEUTROPHILS % (AUTO) 75 % (42-75); PLATELET COUNT 272 x10^3/uL (130-400); RED BLOOD COUNT 2.16 x10^6/uL (3.82-5.3); RED CELL DISTRIBUTION WIDTH 15.7 % (9.6-15.2)
[2020-08-06 19:29] LABS: ALBUMIN 1.9 g/dL (3.4-5.0); ANION GAP 3 mmol/L (5-15); CALCIUM 8.7 mg/dL (8.5-10.1); CHLORIDE 96 mmol/L (98-107)
[2020-08-06 19:34] LABS: MD SCAN
[2020-08-06 19:45] LABS: ALANINE AMINOTRANSFERASE 12 U/L (12-78); CREATININE 2.09 mg/dL (0.55-1.02)
[2020-08-06 19:47] LABS: ALKALINE PHOSPHATASE 126 U/L (45-117); BILIRUBIN,TOTAL 0.4 mg/dL (0.2-1.0); TOTAL PROTEIN 6.4 g/dL (6.4-8.2)
[2020-08-06] MEDS ORDERED: ONDANSETRON 2MG/ML, 2ML IVPush ONE (21:30)
[2020-08-06] MEDS ORDERED: MORPHINE SULFATE 4 MG/ML, 1ML IVPush PRN (21:30)
[2020-08-06 22:23] VITALS: BP 128/56
--- NOTE | 2020-08-06 22:37 | NUR ---
pt resting in bed with family at pt side, pt medicated per mar with blood running at this time
[2020-08-06 22:41] VITALS: BP 137/65
[2020-08-06] MEDS ORDERED: ONDANSETRON 2MG/ML, 2ML ONE (22:43)
[2020-08-06] MEDS ORDERED: MORPHINE SULFATE 4 MG/ML, 1ML ONE (22:44)
[2020-08-06 23:18] VITALS: BP 144/65
[2020-08-07 02:36] LABS: MICROSCOPIC INDICATED
[2020-08-07] MEDS ORDERED: CEFTRIAXONE PMX 1GM/50ML 50 ML IV ONE (03:00)
[2020-08-07] MEDS ORDERED: CEFTRIAXONE PMX 1GM/50ML 50 ML ONE (03:06)
[2020-08-07 03:29] VITALS: BP 144/65
== END 2020-08-07 03:42 | disposition home or self-care (01) ==
LOC: ED 21:19
DX: R71.0 Precipitous drop in hematocrit (principal); I12.0 Hypertensive chronic kidney disease with stage 5 chronic kidney disease or end stage renal disease; E11.22 Type 2 diabetes mellitus with diabetic chronic kidney disease; N18.6 End stage renal disease; N30.01 Acute cystitis with hematuria; I25.10 Atherosclerotic heart disease of native coronary artery without angina pectoris; I45.10 Unspecified right bundle-branch block; Z99.2 Dependence on renal dialysis
CPT/HCPCS: 36415; 36430; 74176; 80053; 81001; 83690; 85025; 86850; 86900; 86923; 87077; 87086; 93005; 96365; 96375; 99285; J0696; J2270; J2405; P9016; 87186; 96374

== ENCOUNTER → 2021-03-08 | Outpatient (CLI) | payer MEDICARE, MEDICAID ==
[~2021-03-08] MED LIST changes: +ACET325T14 PO; +ACET650S21 PO; +CARV6.2512 PO; +CINA30TA2 PO; +CITA40TA12 PO; +DARB100V SQ; +DARB60VI SQ; +DOXA2TAB9 PO; +ESOM40VI IVPush; +FENT50VI28 IVPush; -HYDR-3246 PO; +HYDR-3248 PO; +IPRA3AMP30 NPPB; +LEVO100T5 PO; +LEVO100V8 IVPush; +LIDO10VI34 ENDO; +LINE600I14 IV; +LINE600T15 PO; +LIOT5TAB10 PO; +LIOT5TAB11 PO; +METO25TA35 PO; +METO25TA4 PO; +METO5VIA30 IVPush; +MIRT-14 PO; +MORP-30 PO; -OMEP40CA42 PO; +OMEP40CA8 PO; +ONDA4VIA60 IVPush; +OXYC5SOL8 PO; +OXYC5TAB2 PO; -OXYC5TAB3 PO; +OXYC5TAB98 PO; +PANT40TA6 PO; +PIPE2.255 IV; +SIME40DR69 PO/NG; +TRAM50TA2 PO; +Tpn Per Pharmacy MC; +VANC1VIA36 PO
== END | disposition home or self-care (01) ==
LOC: CVU 13:07
PROVIDERS: ATTEND Internal Medicine Cardiovascular Disease
DX: I35.8 Other nonrheumatic aortic valve disorders (principal); E78.5 Hyperlipidemia, unspecified; I13.11 Hypertensive heart and chronic kidney disease without heart failure, with stage 5 chronic kidney disease, or end stage renal disease; E11.22 Type 2 diabetes mellitus with diabetic chronic kidney disease; N18.6 End stage renal disease; J90 Pleural effusion, not elsewhere classified; Z99.2 Dependence on renal dialysis
CPT/HCPCS: 93306; 93356

== ENCOUNTER 2021-04-28 08:52 | Outpatient (CLI) | payer MEDICARE, MEDICAID | END 2021-04-28 23:59 | disposition home or self-care (01) | LOC: MERGE 08:52 → CFH 08:52 | PROVIDERS: ATTEND Family Medicine | DX: K42.9 Umbilical hernia without obstruction or gangrene (principal); N28.1 Cyst of kidney, acquired; R74.01 Elevation of levels of liver transaminase levels; J90 Pleural effusion, not elsewhere classified; R59.0 Localized enlarged lymph nodes; N85.2 Hypertrophy of uterus; R18.8 Other ascites | CPT/HCPCS: 74176 ==